=== PATIENT | male | born 1965 | race Caucasian/White ===

== ENCOUNTER → 2016-06-26 | Outpatient (CLI) | payer BC, OTHER ==
[2016-06-26 13:32] LABS: ALT/SGPT 32 U/L (12-78); AST/SGOT 24 U/L (15-37); BLOOD UREA NITROGEN 22 mg/dl (7-18); BUN/CREATININE RATIO 24.6 (10-20); CALCIUM 9.1 mg/dl (8.5-10.1); CARBON DIOXIDE 28 mmol/L (21-32); CHLORIDE 105 mmol/L (98-107); CHOLESTEROL 149 mg/dl (0-200); CREATININE 0.91 mg/dl (0.60-1.40); GLUCOSE 85 mg/dl (70-99); SODIUM 139 mmol/L (136-145); TRIGLYCERIDES 109 mg/dl (0-150); VERY LOW DENSITY LIPOPROT CALC 22 mg/dl
[2016-06-26 13:42] LABS: ALB/GLOB RATIO 1.5 (0.9-2); ALKALINE PHOSPHATASE 62 U/L (45-117); HDL CHOLESTEROL 50 mg/dl; LDL CHOLESTEROL CALCULATED 77 mg/dl
== END | disposition home or self-care (01) ==
LOC: C.LABMFLN 14:07
PROVIDERS: ATTEND Family Medicine
DX: E55.9 Vitamin D deficiency, unspecified (principal); E78.5 Hyperlipidemia, unspecified

== ENCOUNTER 2018-04-22 05:12 | Observation (INO) ==
--- NOTE | 2018-04-04 08:51 | PAT Medication Instructions ---
Medication Instructions Date of Service April 04, 2018 Home Medications cholecalciferol (vitamin D3) 1 tab PO QAM cyanocobalamin (vitamin B-12) 1,000 mcg PO QAM losartan 25 mg PO QAM metoprolol succinate 12.5 mg PO QAM omega 9-pzb-ugl-fish oil [Fish Oil] 2 cap PO QAM rosuvastatin [Crestor] 10 mg PO HS STOP taking 2 weeks before surgery omega 6-odu-eee-fish oil [Fish Oil] 2 cap PO QAM DO NOT take the morning of surgery cholecalciferol (vitamin D3) 1 tab PO QAM cyanocobalamin (vitamin B-12) 1,000 mcg PO QAM losartan 25 mg PO QAM Take morning of surgery With a small sip of water, OTHERWISE NOTHING TO EAT OR DRINK AFTER MIDNIGHT: metoprolol succinate 12.5 mg PO QAM Take evening before surgery rosuvastatin [Crestor] 10 mg PO HS Other Notes If you have any questions please call us at [phone] or [phone] or [phone] or [phone]
--- NOTE | 2018-04-04 11:02 | Anesthesiology Consultation ---
Date of Service April 04, 2018 Assessment & Plan Chart Review Chart Review: Acceptable Risk for Surgery and Patient seen in Pre Admission Testing Teaching & Discussion Pre-Anesthesia Teaching/Discussion Notes: Instructed NPO after midnight before surgery,except medications with 15 cc of water. Medication instructions provided according to the PAT guidelines. History Surgery Operation Date: 04/22/18 07:00 Proposed Procedures p Open Bilateral Inguinal Hernia Repair - Mo Judd MD, FACS Height/Weight Height: 6 ft 1 in Weight: 97.4 kg Allergies Allergy/AdvReac Type Severity Reaction Status Date / Time ampicillin Allergy Mild Rash Verified 03/22/18 13:50 Pltevjr-Iqh-Waw Reductase Allergy Mild PAIN IN Verified 03/22/18 13:50 Inhibitor JOINTS sulfamethoxazole Allergy Mild RASH, Verified 03/22/18 13:50 [From Bactrim] FEVER FLU SYMPTOMS trimethoprim [From Bactrim] Allergy Mild RASH, Verified 03/22/18 13:50 FEVER FLU SYMPTOMS KALPESH Inhibitors AdvReac Mild Cough Verified 03/22/18 13:50 Medications Home Medications Medication Instructions Recorded Confirmed Last Taken cholecalciferol (vitamin D3) 1 tab PO QAM 03/22/18 03/22/18 Unknown [Vitamin D3] cyanocobalamin (vitamin B-12) 1,000 mcg PO QAM 03/22/18 03/22/18 Unknown [Vitamin B-12] losartan 25 mg PO QAM 03/22/18 03/22/18 Unknown metoprolol succinate 12.5 mg PO QAM 03/22/18 03/22/18 Unknown omega 7-dsw-rok-fish oil [Fish Oil] 2 cap PO QAM 03/22/18 03/22/18 Unknown rosuvastatin [Crestor] 10 mg PO HS 03/22/18 03/22/18 Unknown Past Medical History Medical History Anxiety Depression Hyperlipidemia Hypertension Sleep apnea CPAP Past Surgical History Surgical History History of colonoscopy History of tonsillectomy and adenoidectomy Hx of vasectomy Past Anesthesia History No Hx of Anesthesia Complications Father- difficulty with "keeping him sedated" with open heart surgery felt secondary to medical comorbidities. History of PONV No Motion Sickness Screening History of Motion Sickness: No Social History Smoking Status: Never smoker Do You Dip or Chew Tobacco: No Hx Alcohol Use: Yes Alcohol type: beer alcohol intake frequency: 0-2 drinks per day (LESS THAN 10 DRINKS PER WEEK) Hx Substance Use: No substance use type: does not use Exercise / Class Metabolic Activity II 4-5 Yardwork/Stairs/Walk up hill Review of Systems Patient denies chest pain, shortness of breath, dyspnea on exertion, cough, wheezing, palpitations. Physical Exam Vital Signs VITALS BP 129/86 P 55 TEMP 98.2 SP02 96%RA RESP 18 Full neck and c-spine range of motion. Full TMJ range of motion. TMD 4 finger breaths Mallampati Score 3 Dentition: intact, crown on molar Lungs: clear throughout to auscultation Cardiac: regular rate and rhythm, no murmurs noted Spine: normal Carotid arteries: negative bruit Extremities: no edema Testing Electrocardiogram Date: 04/04/18 Findings: + SB @ (58) Early R wave transition in the right precordial leads. Laboratory Results 04/04/18 11:16 04/04/18 11:16
--- NOTE | 2018-04-04 11:03 | PAT Medication Instructions ---
Medication Instructions Date of Service April 04, 2018 Home Medications cholecalciferol (vitamin D3) 1 tab PO QAM cyanocobalamin (vitamin B-12) 1,000 mcg PO QAM losartan 25 mg PO QAM metoprolol succinate 12.5 mg PO QAM omega 8-cet-xex-fish oil [Fish Oil] 2 cap PO QAM rosuvastatin [Crestor] 10 mg PO HS STOP taking 2 weeks before surgery (or as soon as possible if surgery is within 2 weeks) omega 4-ujb-tgm-fish oil [Fish Oil] 2 cap PO QAM DO NOT take the morning of surgery cholecalciferol (vitamin D3) 1 tab PO QAM cyanocobalamin (vitamin B-12) 1,000 mcg PO QAM losartan 25 mg PO QAM Take morning of surgery With a small sip of water, OTHERWISE NOTHING TO EAT OR DRINK AFTER MIDNIGHT: metoprolol succinate 12.5 mg PO QAM Take evening before surgery rosuvastatin [Crestor] 10 mg PO HS Other Notes If you have any questions please call us at [phone] or [phone] or [phone] or [phone]
[2018-04-04 12:01] LABS: Basophils # (auto) 0.03 K/uL (0-0.2); Basophils % (auto) 0.6 %; Hematocrit (blood only) 44.4 % (42-52); Hemoglobin 15.1 g/dL (14.0-18.0); Lymphocytes # (auto) 1.56 K/uL (1.2-3.4); Lymphocytes % (auto) 30.8 %; Mean Corpuscular Volume 87.7 fL (80-100); Monocytes # (auto) 0.44 K/uL (0.11-0.59); Monocytes % (auto) 8.7 %; Neutrophils # (auto) 2.83 K/uL (1.4-6.5); Neutrophils % (auto) 55.9 %; Platelet Count 196 K/uL (130-400); RDW Coefficient of Variation 12.5 % (11.5-14.5); Red Blood Count 5.06 M/uL (4.7-6.1); White Blood Count 5.06 K/uL (4.8-10.8)
[2018-04-04 12:12] LABS: BUN Creatinine Ratio 18.6 (10-20); Calcium 9.2 mg/dl (8.5-10.1); Creatinine Clr Calc Pharmacy 111.7 ml/min; Est GFR (African American) 106.9; Est GFR (Non-African American) 92.2
[2018-04-22] MEDS ORDERED: LR 15ML/HR IV SCH (06:00)
[2018-04-22] MEDS ORDERED: CLINDAMYCIN 900 MG in DEXTROSE 5% 100 ML IV SCH (06:00)
[2018-04-22] MEDS ORDERED: BUPIVACAINE 0.5 % 5 MG/1 ML MPF 30ML VIAL ONE (06:30)
[2018-04-22] MEDS ORDERED: CEFAZOLIN 250 MG/ML 1 GM VIAL ONE (06:31)
[2018-04-22] MEDS ORDERED: LIDOCAINE HCL 1% 20 ML VIAL ONE (06:31)
[2018-04-22] MEDS ORDERED: MIDAZOLAM HCL 1 MG/ML 2ML VIAL ONE (06:33)
[2018-04-22] MEDS ORDERED: fentaNYL citrate 100 MCG/2 ML VIAL ONE ×3 (06:33→07:48)
[2018-04-22] MEDS ORDERED: PROMETHAZINE HCL 6.25 MG in SODIUM CHLORIDE 0.9% 50 ML IV PRN (06:50)
[2018-04-22] MEDS ORDERED: HYDROmorphone INJ 2 MG/ML SYR/VIAL IV PRN (06:50)
[2018-04-22] MEDS ORDERED: ONDANSETRON INJ 2 MG/ML 2 ML VIAL IV PRN ×2 (06:50→08:46)
[2018-04-22] MEDS ORDERED: fentaNYL citrate 100 MCG/2 ML VIAL IV PRN (06:50)
[2018-04-22] MEDS ORDERED: ePHEDrine sulfate 50 MG/ML AMP IV PRN (06:50)
[2018-04-22] MEDS ORDERED: ATROPINE SULFATE 0.1 MG/ML 10ML SYR IV PRN (06:50)
[2018-04-22] MEDS ORDERED: PROPOFOL IV EMULSION 10 MG/ML 20 ML VIAL IV ONE ×2 (07:11→07:57)
[2018-04-22] MEDS ORDERED: LIDOCAINE HCL 2% 2 ML VIAL/AMP(20MG/ML) INFIL ONE (07:11)
[2018-04-22] MEDS ORDERED: DEXAMETHASONE SOD INJ 4 MG/ML VIAL ONE (07:11)
[2018-04-22] MEDS ORDERED: ONDANSETRON INJ 2 MG/ML 2 ML VIAL ONE (07:11)
[2018-04-22] MEDS ORDERED: KETOROLAC 30 MG/ML VIAL ONE (07:11)
[2018-04-22] MEDS ORDERED: ACETAMINOPHEN 1,000 MG/100 ML VIAL IV ONE (08:34)
--- NOTE | 2018-04-22 08:34 | Operative Report ---
Post Operative Report Pre & Post Diagnosis Operation Date: 04/22/18 07:00 Pre-Op Diagnosis: Bilateral Inguinal Hernia Post-Op Diagnosis: Bilateral Inguinal Hernia same with direct defects Procedure Operation Date: 04/22/18 07:00 Actual Procedures p Bilateral Open Inguinal Hernia Repair(Bilateral) - Mo Judd MD, FACS same Surgeon Mo Judd MD, FACS E Learning Specialist Dima Ayala Estimated Blood Loss 20 Findings Consistent with Post-Op Diagnosis Specimens none Description of Procedure see dictated note I attest to the content of the Intraoperative Record and any orders documented therein. Any exceptions are noted below.
[2018-04-22] MEDS ORDERED: PROMETHAZINE HCL 12.5 MG in SODIUM CHLORIDE 0.9% 50 ML IV PRN (08:46)
[2018-04-22] MEDS ORDERED: HYDROCODONE/ACETAMOPHEN 5/325MG TAB PO PRN (08:46)
[2018-04-22] MEDS ORDERED: MoRPHine SULFATE 4 MG/ML 1 ML CARP\\VIAL IV PRN (08:46)
--- NOTE | 2018-04-22 10:02 | Operative Report ---
DATE OF OPERATION: 04/22/2018 NAME OF OPERATION: Bilateral inguinal hernia repair. PREOPERATIVE DIAGNOSIS: Bilateral inguinal hernias. POSTOPERATIVE DIAGNOSIS: Bilateral inguinal hernias with direct defect. STAFF SURGEON: Mo Judd MD COMMUNITY HEALTH WORKER: Nini Ayala PA-C ANESTHESIA: General LMA. DESCRIPTION OF PROCEDURE: The patient brought in the operating room and placed on the operating table in supine position. His lower abdomen was prepped and draped in usual fashion. As a note, my yard assistant helped with prepping, draping, repair of the hernias and closure of the wounds. The left side was approached first. The skin on both sides was anesthetized using 0.5% plain Marcaine. Incisions were made identically the left side first parallel to the inguinal ligament, carrying dissection down through the adipose tissue, identifying the external oblique fibers incising them along their length to the external ring, mobilizing the cord structures. The patient had a direct hernia. It was reduced and then partially closed using 0 silk suture reapproximating the transversalis fascia and inguinal ligament. Then, a mesh plug placed into the defect, secured to surrounding tissue using 2-0 Ethibond suture, then a large mesh patch placed into the floor of the canal around the cord structures, secured using 2-0 Ethibond suture. On both sides, the ilioinguinal and iliohypogastric nerves were identified. On the left side, the external oblique fibers were then closed over the mesh around the cord structures, secured using 2-0 Ethibond suture. The site was anesthetized using 0.5% plain Marcaine. Subcutaneous tissue reapproximated using 2-0 plain suture and then the skin reapproximated using 4-0 nylon suture and Steri-Strips. The right side was approached and the exact same repair was performed. The sac was somewhat smaller, but still a direct hernia. Dressings were applied. The patient was transferred to the recovery room in stable condition. I attest to the content of the Intraoperative Record and any orders documented therein. Any exception s are noted below.
--- NOTE | 2018-04-22 10:11 | Anesthesiology Progress Note ---
Date of Service April 22, 2018 Anesthesia Post Procedure Vital Signs Vital Signs: Temp Pulse Pulse Resp BP BP BP 04/22/18 10:08 51 L 17 127/87 04/22/18 09:20 36.5 C 52 L 21 120/81 04/22/18 09:15 36.5 C 53 L 21 121/85 04/22/18 09:10 60 27 H 122/85 04/22/18 09:05 62 24 122/87 04/22/18 09:00 62 25 H 122/84 04/22/18 08:55 62 24 115/84 04/22/18 08:51 36.7 C 77 58 L 21 121/64 121/64 04/22/18 08:50 73 22 04/22/18 08:47 58 L 15 04/22/18 05:36 36.9 C 53 L 18 138/85 Pulse Ox 04/22/18 10:08 99 04/22/18 09:20 95 04/22/18 09:15 96 04/22/18 09:10 95 04/22/18 09:05 95 04/22/18 09:00 95 04/22/18 08:55 93 04/22/18 08:51 92 04/22/18 08:50 92 04/22/18 08:47 94 04/22/18 05:36 97 Notes Mental Status: alert / awake / arousable Patient Amnestic to Procedure: Yes Nausea / Vomiting: adequately controlled Pain: adequately controlled Airway Patency, RR, SpO2: stable & adequate BP & HR: stable & adequate Hydration State: stable & adequate Anesthetic Complications: no major complications apparent
[2018-04-22] MEDS: SODIUM CHLORIDE 0.9% 1000ML 1,000 ML IV SCH ×3 (10:15→13:48)
[2018-04-22] MEDS: METOPROLOL SUCC 25MG EXT REL TAB PO SCH (11:17)
[2018-04-22] MEDS: DOCUSATE SODIUM/SENNA 50/8.6MG TAB PO SCH ×2 (11:17→20:20)
[2018-04-22] MEDS: LOSARTAN POTASSIUM 25 MG TAB PO SCH (11:17)
--- NOTE | 2018-04-22 14:54 | Consultation ---
Date of Consultation April 22, 2018 Assessment & Plan (1) Post-operative state: Bilateral inguinal hernia S/P repair POD #0 Monitor for post op anemia Bowel regimen to prevent constipation Pain control Wound Care as per surgery Tolerating diet CBC in AM Sinus Bradycardia Currently resolved Metoprolol with holding parameters HTN: Stable Continue losartan, Metoprolol monitor HLP: Continue Statins JOSE DE JESUS: Continue CPAP QHS DVT Px: As per Primary Team Code Status: Full Code Disposition: As per Primary Team History of Present Illness Reason for Consultation: Medical Management Post Op Requesting Physician: Attending Physician: Mo Judd MD, [facility] History of Present Illness Patient is a 52-year-old male with PMH of HTN, HLP, JOSE DE JESUS on CPAP, Anxiety, depression and other problems was seen and examined postop after having bilateral inguinal hernia repair by Dr. Judd. Patient is doing well postop. He reports mild numbness of tongue, perioral region after returning from the OR which is currently improving. Denies any pain at surgical site. Reports mild dizziness earlier but currently resolved. Also denies any history of chest pain , SOB, pedal edema, cough, fever, headache, change in vision, nausea, vomiting, abdominal pain, dysuria. He has tolerated diet. Allergies Allergy/AdvReac Type Severity Reaction Status Date / Time ampicillin Allergy Mild Rash Verified 04/22/18 05:34 Vacnmod-Equ-Pfg Reductase Allergy Mild PAIN IN Verified 04/22/18 05:34 Inhibitor JOINTS sulfamethoxazole Allergy Mild RASH, Verified 04/22/18 05:34 [From Bactrim] FEVER FLU SYMPTOMS trimethoprim [From Bactrim] Allergy Mild RASH, Verified 04/22/18 05:34 FEVER FLU SYMPTOMS KALPESH Inhibitors AdvReac Mild Cough Verified 04/22/18 05:34 Home Medications Home Medications Medication Instructions Recorded Confirmed Type cholecalciferol (vitamin D3) 1 tab PO QAM 03/22/18 04/22/18 History [Vitamin D3] cyanocobalamin (vitamin B-12) 1,000 mcg PO QAM 03/22/18 04/22/18 History [Vitamin B-12] losartan 25 mg PO QAM 03/22/18 04/22/18 History metoprolol succinate 12.5 mg PO QAM 03/22/18 04/22/18 History omega 7-xjf-clc-fish oil [Fish Oil] 2 cap PO QAM 03/22/18 04/22/18 History rosuvastatin [Crestor] 10 mg PO HS 03/22/18 04/22/18 History Patient History Medical History Anxiety Depression Hyperlipidemia Hypertension Sleep apnea CPAP Surgical History History of colonoscopy History of tonsillectomy and adenoidectomy Hx of vasectomy Family History Father Heart disease Social History Current Living Situation: Spouse Other Information That Helps Us Care for You: No Feels Safe at Home: Yes Safety Concerns: Feels Safe At This Time Smoking Status: Never smoker Do You Dip or Chew Tobacco: No Hx Alcohol Use: Yes Alcohol type: beer Alcohol Intake Frequency: 0-2 drinks per day (LESS THAN 10 DRINKS PER WEEK) Hx Substance Use: No Beliefs That Will Affect Care: None Preferred Language: Bolivian Communication Ability: Effective Claims Examiner Required: No Review of Systems All systems reviewed. Negative other than HPI. Physical Exam 2 Vital Signs (Past 24 Hours): Last Vital Signs Temp 36.9 C 04/22/18 09:40 Pulse 58 L 04/22/18 12:40 Resp 16 04/22/18 12:40 BP 120/80 04/22/18 12:40 Pulse Ox 93 04/22/18 12:40 Physical Exam: Physical Exam: Vitals signs as noted above General Appearance:Moderately built and nourished, no apparent distress Head: normocephalic, Atraumatic Eyes: normal inspection, EOMI Neck: supple, Trachea midline Respiratory/Chest: Normal breath sounds, CTA Cardiovascular: S1, S2, No murmur Abdomen/GI:Soft, Non tender, Bowel sounds present : B/L inguinal surgical site in dressing Extremities/Musculoskelatal:normal inspection, no edema Neurologic/Psych:AAOX3, grossly no focal neurological deficits Skin: normal color, warm
[2018-04-22] MEDS: CEFAZOLIN 1000MG 1,000 MG/7.5 ML SYR IV SCH (16:23)
[2018-04-22] MEDS: HYDROCODONE/ACETAMOPHEN 5/325MG TAB PO PRN ×2 (18:22→21:57)
[2018-04-22] MEDS ORDERED: ROSUVASTATIN CALCIUM 10 MG TAB PO SCH (21:00)
[2018-04-23] MEDS: CEFAZOLIN 1000MG 1,000 MG/7.5 ML SYR IV SCH ×2 (00:17→09:17)
[2018-04-23] MEDS: MoRPHine SULFATE 4 MG/ML 1 ML CARP\\VIAL IV PRN ×2 (00:29→03:40)
--- NOTE | 2018-04-23 06:27 | Discharge Summary ---
PRINCIPAL DIAGNOSIS: Bilateral inguinal hernias. PROCEDURES: The patient underwent open bilateral inguinal hernia repair. HISTORY OF PRESENT ILLNESS: The patient is a 52-year-old male with known bilateral inguinal hernias. HOSPITAL COURSE: The patient was brought in the hospital for elective repair of his bilateral inguinal hernias. He tolerated the procedure well and has been doing well overnight, voiding well. His wounds are intact without significant active bleeding. He will be discharged home today to be followed in the surgical clinic within 1 week.
[2018-04-23 07:18] LABS: Hemoglobin 14.4 g/dL (14.0-18.0); Mean Corpuscular Hgb Conc 33.5 g/dL (32-36); Mean Corpuscular Volume 88.8 fL (80-100); Mean Platelet Volume 10.9 fL (7.4-10.4); Platelet Count 203 K/uL (130-400); RDW Coefficient of Variation 12.4 % (11.5-14.5); RDW Standard Deviation 39.8 fL (36.4-46.3); Red Blood Count 4.84 M/uL (4.7-6.1); White Blood Count 7.03 K/uL (4.8-10.8)
[2018-04-23 07:54] LABS: Creatinine Clr Calc Pharmacy 93.2 ml/min; Est GFR (African American) 87.4; Est GFR (Non-African American) 75.4; Potassium 3.5 mmol/L (3.5-5.1)
[2018-04-23 07:55] LABS: BUN Creatinine Ratio 12.3 (10-20); Calcium 8.6 mg/dl (8.5-10.1); Magnesium 2.1 mg/dl (1.8-2.4)
--- NOTE | 2018-04-23 08:19 | Anesthesiology Progress Note ---
Date of Service April 23, 2018 Anesthesia Post Procedure Vital Signs Vital Signs: Temp Pulse Pulse Resp BP BP BP 04/23/18 08:12 36.6 C 67 14 145/94 H 128/71 04/23/18 07:20 36.6 C 67 14 145/94 H 04/23/18 03:00 36.7 C 66 16 128/71 04/22/18 22:56 36.6 C 54 L 16 129/76 04/22/18 18:58 36.7 C 63 18 123/83 04/22/18 15:12 36.9 C 68 18 126/79 04/22/18 12:40 58 L 16 120/80 04/22/18 11:42 60 17 144/91 H 04/22/18 10:40 64 17 124/82 04/22/18 10:08 51 L 17 127/87 04/22/18 09:40 36.9 C 53 L 18 126/83 04/22/18 09:20 36.5 C 52 L 21 120/81 04/22/18 09:15 36.5 C 53 L 21 121/85 04/22/18 09:10 60 27 H 122/85 04/22/18 09:05 62 24 122/87 04/22/18 09:00 62 25 H 122/84 04/22/18 08:55 62 24 115/84 04/22/18 08:51 36.7 C 77 58 L 21 121/64 121/64 04/22/18 08:50 73 22 04/22/18 08:47 58 L 15 Pulse Ox 04/23/18 08:12 95 04/23/18 07:20 95 04/23/18 03:00 94 04/22/18 22:56 97 04/22/18 18:58 93 04/22/18 15:12 95 04/22/18 12:40 93 04/22/18 11:42 93 04/22/18 10:40 93 04/22/18 10:08 99 04/22/18 09:40 98 04/22/18 09:20 95 04/22/18 09:15 96 04/22/18 09:10 95 04/22/18 09:05 95 04/22/18 09:00 95 04/22/18 08:55 93 04/22/18 08:51 92 04/22/18 08:50 92 04/22/18 08:47 94 Pain Intensity Bilateral Groin: Pain Intensity: 2 Notes Mental Status: alert / awake / arousable and participated in evaluation Patient Amnestic to Procedure: Yes Nausea / Vomiting: adequately controlled Pain: adequately controlled Airway Patency, RR, SpO2: stable & adequate BP & HR: stable & adequate Hydration State: stable & adequate Anesthetic Complications: no major complications apparent
[2018-04-23] MEDS: HYDROCODONE/ACETAMOPHEN 5/325MG TAB PO PRN ×2 (09:03→10:42)
[2018-04-23] MEDS: METOPROLOL SUCC 25MG EXT REL TAB PO SCH (09:17)
[2018-04-23] MEDS: DOCUSATE SODIUM/SENNA 50/8.6MG TAB PO SCH (09:18)
[2018-04-23] MEDS: LOSARTAN POTASSIUM 25 MG TAB PO SCH (09:18)
== END 2018-04-23 13:26 | disposition home or self-care (01) ==
LOC: ASU 05:12 → 3N 05:12